=== PATIENT | female | born 1950 | race Caucasian/White ===

== ENCOUNTER → 2016-10-23 | Outpatient (CLI) | payer MEDICARE, BC ==
--- NOTE | ~2016-10-23 | US128 ---
[id number] [facility] [address] [place], [place] [address] [id number] O MR#: [id number] Acc #: [id number] NAME: LAWANDA ADAMS : 1950 SEX: F STUDY DATE/TIME: 10/23/2016 8:07 UNIT: [facility] ROOM: STUDY DESCRIPTION: Thyroid Attending Physician: Kortney Patel A.P.R.N. Referring Physician: Kortney Patel A.P.R.N. Ordering Physician: Kortney Patel A.P.R.N. Primary Care Physician: Kortney Patel A.P.R.N. MEDICAL IMAGING REPORT This report is preliminary unless electronic signature is present EXAM Thyroid ultrasound, 10/23/2016. INDICATIONS Nontoxic diffuse goiter. Choking sensation since winter. TECHNIQUE Sonographic imaging of the thyroid gland was performed. No comparison studies. FINDINGS Right thyroid lobe measures 1.9 x 2.1 x 5.2 cm and the left measures 2 x 1.2 x 4.6 cm. Vascularity within normal limits. Thyroid isthmus measures 2 mm. Mixed cystic and solid nodule in the lower pole posterior right thyroid lobe measures 14 x 10 mm. In the medial mid pole right thyroid lobe, there is a solid partially cystic nodule measuring 11 x 5 mm. In the lateral midpole right thyroid lobe, there is a primarily solid nodule measuring 12 x 9 mm. It contains no microcalcifications. In the lateral mid left thyroid lobe, there is a primarily cystic nodule with small solid components measuring up to 12 x 5 mm. There is inspissated colloid within it. IMPRESSION 1. Mild thyromegaly. Multiple subcentimeter short-axis thyroid nodules primarily the right thyroid lobe. These do not meet size criteria for fine-needle aspiration at this time. Suggest interval followup ultrasound in 1 year for reassessment. Dictated by... Britton Pearson M.D. THIS IS AN ELECTRONICALLY VERIFIED REPORT Britton Pearson M.D. at 10/24/2016 4:09 PM ISIDRO/tyra TD: 10/24/2016 11:57 JOB #: [id number] MEDICAL IMAGING REPORT Page 1 of 1 COPY
== END | disposition home or self-care (01) ==
LOC: CWCC 10-22 08:00 → CGUS 10-22 13:30 → CWCC 07:53
DX: E04.0 Nontoxic diffuse goiter (principal)
CPT/HCPCS: 76536